=== PATIENT | male | born 1940 | race Hispanic/Latino ===

== ENCOUNTER 2017-10-17 15:53 | Observation (INO) | payer MEDICARE, OTHER ==
[2017-10-17 17:48] LABS: BASO # 0.1 K/uL (0.0-0.2); BASO % 0.7 % (0.0-2.0); EOS # 0.5 K/uL (0.0-0.7); EOS % 4.9 % (0.0-4.0); HEMOGLOBIN 16.5 g/dL (12.0-18.0); LYMPH # 2.7 K/uL (1.0-4.3); LYMPH % 28.3 % (20.0-40.0); MEAN CELL VOLUME 92.9 fL (80.0-94.0); MEAN CORPUSCULAR HEMOGLOBIN 31.4 pg (27.0-31.0); MEAN CORPUSCULAR HGB CONC 33.8 g/dL (33.0-37.0); MEAN PLATELET VOLUME 8.1 fL (7.2-11.7); MONO # 0.8 K/uL (0.0-0.8); MONO % 8.4 % (0.0-10.0); NEUT # 5.4 K/uL (1.8-7.0); NEUT % 57.7 % (50.0-75.0); NRBC % 0.1 % (0.0-2.0); RBC 5.24 Mil/uL (4.40-5.90); RED CELL DISTRIBUTION WIDTH 13.3 % (11.5-14.5); WHITE BLOOD COUNT 9.4 K/uL (4.8-10.8)
[2017-10-17 17:53] LABS: URINE BILIRUBIN NEGATIVE (NEGATIVE); URINE BLOOD NEGATIVE (NEGATIVE); URINE CLARITY Clear (Clear); URINE COLOR Straw (YELLOW); URINE GLUCOSE (UA) NORMAL (Normal); URINE LEUKOCYTE ESTERASE NEG Leu/uL (Negative); URINE PROTEIN NEGATIVE (NEGATIVE); URINE UROBILINOGEN NORMAL mg/dL (0.2-1.0)
[2017-10-17 18:12] LABS: ALB/GLOB RATIO 1.2 (1.0-2.1); ALBUMIN 4.6 g/dL (3.5-5.0); ALT/SGPT 34 U/L (21-72); AST/SGOT 30 U/L (17-59); BLOOD UREA NITROGEN 12 mg/dL (9-20); CALCIUM 9.7 mg/dl (8.6-10.4); GFR AFRICAN-AMERICAN > 60; GFR NON-AFRICAN AMERICAN > 60
[2017-10-17 18:46] LABS: T3 1.84 nmol/L (1.49-2.60)
--- NOTE | 2017-10-17 19:43 | C.PDOC ---
History Of Present Illness 77 y/o male presents to ED with c/o palpitations and intermittent chest pain for "couple of days". Patient has history of a-fib and was scheduled for cardiac work up in 3 days. Patient denies fever, cough, nausea, vomiting or any other complaints at this time. Time Seen by Provider: 10/17/17 16:17 Chief Complaint (Nursing): Palpitations History Per: Patient History/Exam Limitations: no limitations Onset/Duration Of Symptoms: Days Current Symptoms Are (Timing): Still Present Quality: "Pain" Past Medical History Reviewed: Historical Data, Nursing Documentation, Vital Signs Vital Signs: Last Vital Signs Temp 97.9 F 10/17/17 21:25 Pulse 85 10/17/17 21:25 Resp 20 10/17/17 21:25 BP 124/80 10/18/17 00:19 Pulse Ox 96 10/17/17 21:25 - Medical History PMH: Anxiety, HTN, Hypercholesterolemia, Post Traumatic Stress Disorder Surgical History: Appendectomy, Cholecystectomy, Coronary Stent Family History: States: No Known Family Hx - Social History Hx Tobacco Use: No Hx Alcohol Use: No Hx Substance Use: No - Immunization History Hx Tetanus Toxoid Vaccination: Yes Hx Influenza Vaccination: Yes Hx Pneumococcal Vaccination: Yes Review Of Systems Constitutional: Negative for: Fever, Chills Cardiovascular: Positive for: Chest Pain, Palpitations Respiratory: Negative for: Shortness of Breath Gastrointestinal: Negative for: Nausea, Vomiting Skin: Negative for: Rash Physical Exam - Physical Exam Appears: Non-toxic, No Acute Distress Skin: Warm, Dry, No Rash Head: Atraumatic, Normacephalic Eye(s): bilateral: Normal Inspection Oral Mucosa: Moist Neck: Normal ROM, Supple Cardiovascular: Rhythm Regular, Other (Tachycardic) Respiratory: Normal Breath Sounds, No Rales, No Rhonchi, No Wheezing Gastrointestinal/Abdominal: Soft, No Tenderness, No Guarding, No Rebound Extremity: No Pedal Edema, Capillary Refill (<2 seconds) Neurological/Psych: Oriented x3, Normal Speech, Normal Cognition ED Course And Treatment - Laboratory Results Result Diagrams: 10/17/17 17:39 10/17/17 17:39 ECG: Interpreted By Me, Viewed By Me ECG Rhythm: Atrial Fibrillation Rate From EC (BPM) O2 Sat by Pulse Oximetry: 96 (RA) Medical Decision Making Medical Decision Making: Progress: Cardizem IV push administered, resolution of tachycardia Patient at times became tachycardic on 140s Dr. Hough called, patient be admitted to her service and telemetry Disposition - Disposition Disposition: HOSPITALIZED Disposition Time: 18:45 Condition: FAIR - Clinical Impression Clinical Impression: (Ruled Out): Atrial fibrillation with RVR - Scribe Statement The provider has reviewed the documentation as recorded by the Mikeibsandor Del Angel All medical record entries made by the Mikeibsandor were at my direction and personally dictated by me. I have reviewed the chart and agree that the record accurately reflects my personal performance of the history, physical exam, medical decision making, and the department course for this patient. I have also personally directed, reviewed, and agree with the discharge instructions and disposition.
[2017-10-18] MEDS: Enoxaparin 40 mg Syringe SC SCH (09:35)
--- NOTE | 2017-10-18 10:41 | RAD ---
PROCEDURE: CHEST RADIOGRAPH, 1 VIEW HISTORY: chest pain COMPARISON: Comparison made with chest radiograph 04/16/2016. FINDINGS: LUNGS: Suspect minor left basilar atelectasis and or scarring. Appears otherwise clear. PLEURA: No pneumothorax or pleural fluid seen. CARDIOVASCULAR: Normal. OSSEOUS STRUCTURES: No significant abnormalities. VISUALIZED UPPER ABDOMEN: Normal. OTHER FINDINGS: None. IMPRESSION: Suspect minor left basilar atelectasis and or scarring. Appears otherwise clear.
--- NOTE | 2017-10-18 11:05 | CP.PCM.CON ---
History of Present Illness - History of Present Illness History of Present Illness: Patient with history of Paroxysmal atrial fibrillation who came in for palpitation. As per patient he has these epidoes before and was treated at [place]. Now does nor feel any palpitation. No chest pain or SOB. walking in the hallway. Past Patient History - Past Medical History & Family History Past Medical History?: Yes - Past Social History Smoking Status: Never Smoked - CARDIAC Hx Hypercholesterolemia: Yes Hx Hypertension: Yes - PULMONARY Hx Respiratory Disorders: No - NEUROLOGICAL Hx Neurological Disorder: No - HEENT Hx HEENT Problems: No - RENAL Hx Chronic Kidney Disease: No - ENDOCRINE/METABOLIC Hx Endocrine Disorders: No - HEMATOLOGICAL/ONCOLOGICAL Hx Blood Disorders: No - INTEGUMENTARY Hx Dermatological Problems: No - MUSCULOSKELETAL/RHEUMATOLOGICAL Hx Musculoskeletal Disorders: No Hx Falls: No - GASTROINTESTINAL Hx Gastrointestinal Disorders: No - GENITOURINARY/GYNECOLOGICAL Hx Genitourinary Disorders: No - PSYCHIATRIC Hx Anxiety: Yes Hx Post Traumatic Stress Disorder: Yes Hx Substance Use: No - SURGICAL HISTORY Hx Appendectomy: Yes Hx Cholecystectomy: Yes Hx Coronary Stent: Yes - ANESTHESIA Hx Anesthesia: Yes Hx Anesthesia Reactions: No Hx Malignant Hyperthermia: No Meds Allergies/Adverse Reactions: Allergies Allergy/AdvReac Type Severity Reaction Status Date / Time No Known Allergies Allergy Unverified 03/11/14 05:07 - Medications Medications: Current Medications Amlodipine Besylate (Norvasc) 10 mg PO DAILY [facility] Last Admin: 10/18/17 09:33 Dose: 10 mg Aspirin (Aspirin) 325 mg PO DAILY [facility] Last Admin: 10/18/17 09:33 Dose: 325 mg Enoxaparin Sodium (Lovenox) 40 mg SC DAILY [facility] Last Admin: 10/18/17 09:35 Dose: 40 mg Isosorbide Mononitrate (Imdur) 60 mg PO DAILY [facility] Last Admin: 10/18/17 09:34 Dose: 60 mg Metoprolol Tartrate (Lopressor) 25 mg PO BID [facility] Last Admin: 10/18/17 09:34 Dose: 25 mg Rosuvastatin Calcium (Crestor) 20 mg PO [facility] Physical Exam - Head Exam Head Exam: NORMOCEPHALIC - Neck Exam Neck exam: Positive for: Normal Inspection - Respiratory Exam Respiratory Exam: NORMAL BREATHING PATTERN - Cardiovascular Exam Cardiovascular Exam: REGULAR RHYTHM - Extremities Exam Extremities exam: Positive for: normal inspection - Neurological Exam Neurological exam: Alert, Oriented x3 Results - Vital Signs Recent Vital Signs: Last Vital Signs Temp 97.7 F 10/18/17 07:00 Pulse 66 10/18/17 07:04 Resp 20 10/18/17 07:00 BP 165/89 H 10/18/17 09:42 Pulse Ox 95 10/18/17 07:57 - Labs Result Diagrams: 10/17/17 17:39 10/17/17 17:39 Labs: Laboratory Results - last 24 hr 10/17/17 10/17/17 10/17/17 17:39 17:39 17:39 WBC 9.4 RBC 5.24 Hgb 16.5 Hct 48.7 MCV 92.9 MCH 31.4 H MCHC 33.8 RDW 13.3 Plt Count 281 MPV 8.1 Neut % (Auto) 57.7 Lymph % (Auto) 28.3 [place] % (Auto) 8.4 Eos % (Auto) 4.9 H Baso % (Auto) 0.7 Neut # (Auto) 5.4 Lymph # (Auto) 2.7 [place] # (Auto) 0.8 Eos # (Auto) 0.5 Baso # (Auto) 0.1 Sodium 145 Potassium 4.2 Chloride 105 Carbon Dioxide 25 Anion Gap 19 BUN 12 Creatinine 1.0 Est GFR ( Amer) > 60 Est GFR (Non-Af Amer) > 60 Random Glucose 93 Calcium 9.7 Total Bilirubin 0.9 AST 30 ALT 34 Alkaline Phosphatase 70 Troponin I < 0.0120 Total Protein 8.5 H Albumin 4.6 Globulin 3.9 Albumin/Globulin Ratio 1.2 Free T4 Total T3 1.84 TSH 3rd Generation 1.96 Urine Color Straw Urine Clarity Clear Urine pH 7.0 Ur Specific [place] 1.005 Urine Protein Negative Urine Glucose (UA) Normal Urine Ketones Negative Urine Blood Negative Urine Nitrate Negative Urine Bilirubin Negative Urine Urobilinogen Normal Ur Leukocyte Esterase Neg Urine WBC (Auto) < 1 Urine RBC (Auto) < 1 10/17/17 10/18/17 17:39 01:47 WBC RBC Hgb Hct MCV MCH MCHC RDW Plt Count MPV Neut % (Auto) Lymph % (Auto) [place] % (Auto) Eos % (Auto) Baso % (Auto) Neut # (Auto) Lymph # (Auto) [place] # (Auto) Eos # (Auto) Baso # (Auto) Sodium Potassium Chloride Carbon Dioxide Anion Gap BUN Creatinine Est GFR ( Amer) Est GFR (Non-Af Amer) Random Glucose Calcium Total Bilirubin AST ALT Alkaline Phosphatase Troponin I 0.0150 Total Protein Albumin Globulin Albumin/Globulin Ratio Free T4 0.86 Total T3 TSH 3rd Generation Urine Color Urine Clarity Urine pH Ur Specific [place] Urine Protein Urine Glucose (UA) Urine Ketones Urine Blood Urine Nitrate Urine Bilirubin Urine Urobilinogen Ur Leukocyte Esterase Urine WBC (Auto) Urine RBC (Auto) Assessment & Plan (1) Chest pain Assessment and Plan: Resolved, Echocardiogram to assess LV systolic function. Troponin negative so far. Patient has appointment on for some, nay have further cardiac work -up there. Status: Acute (2) Palpitations Assessment and Plan: Paroxysmal Atrial fibrillation now in Sinus. However given multiple episodes will therapeutic Anticoagulation. D/C cardizem and increase cardizem as tolerated. Discussed with team. Status: Acute
[2017-10-19 07:45] LABS: IRON 80 ug/dL (49-181)
[2017-10-19 07:56] LABS: % IRON SATURATION 26 (20-55); TOTAL IRON BINDING CAPACITY 312 ug/dL (250-450)
[2017-10-19 08:52] LABS: FOLATE 14.2 ng/mL
[2017-10-19 08:55] VITALS: RESP 18; TEMP 97.8
[2017-10-19 09:25] VITALS: BP 133/76
[2017-10-19] MEDS: Enoxaparin 40 mg Syringe SC SCH (09:25)
[2017-10-19 12:29] VITALS: PULSE 65
--- NOTE | 2017-10-19 12:40 | CP.PCM.PN ---
Subjective - Date & Time of Evaluation Date of Evaluation: 10/19/17 Time of Evaluation: 12:39 Objective - Vital Signs/Intake and Output Vital Signs (last 24 hours): Temp Pulse Resp BP Pulse Ox 97.8 F 65 18 133/76 96 10/19/17 08:54 10/19/17 11:40 10/19/17 08:54 10/19/17 09:24 10/19/17 12:28 - Medications Medications: Current Medications Amlodipine Besylate (Norvasc) 10 mg PO DAILY [facility] Last Admin: 10/19/17 09:24 Dose: 10 mg Aspirin (Aspirin) 325 mg PO DAILY [facility] Last Admin: 10/19/17 09:24 Dose: 325 mg Enoxaparin Sodium (Lovenox) 40 mg SC DAILY [facility] Last Admin: 10/19/17 09:25 Dose: 40 mg Isosorbide Mononitrate (Imdur) 60 mg PO DAILY [facility] Last Admin: 10/19/17 09:24 Dose: 60 mg Metoprolol Tartrate (Lopressor) 25 mg PO BID [facility] Last Admin: 10/19/17 09:24 Dose: 25 mg Rosuvastatin Calcium (Crestor) 20 mg PO HS [facility] Last Admin: 10/18/17 21:26 Dose: 20 mg - Labs Labs: 10/17/17 17:39 10/17/17 17:39 Assessment and Plan (1) Chest pain Status: Acute (2) Palpitations Status: Acute
--- NOTE | 2017-10-19 13:13 | HP ---
The patient was seen and examined at the bedside on 10/18/2017. CHIEF COMPLAINT: Palpitation, chest pain. HISTORY OF PRESENT ILLNESS: Mr. Alexa Barba is a 77-year-old male who came in complaining of palpitations and intermittent chest pain for a couple of days. The patient has a history of atrial fibrillation and was scheduled for cardiac workup in 3 days. The patient denies fever, cough, nausea, vomiting, or diarrhea. No headache, no dizziness. No hematuria or hematochezia. Just having palpitation, was still present when I did the examination. PAST MEDICAL HISTORY: Anxiety, hypertension, hypercholesterolemia, posttraumatic stress disorder, history of appendectomy, cholecystectomy, coronary stenting. FAMILY HISTORY: Father and mother, noncontributory. HABITS: No smoking. No drugs. No ethanol. REVIEW OF SYSTEMS: The patient was seen and examined at the bedside. Looking comfortable except for palpitation , chest pain. No fever. No chills. No shortness of breath. No nausea, vomiting, diarrhea. No rash. PHYSICAL EXAMINATION: VITAL SIGNS: Temperature 97.9, pulse 85, respiratory rate 20, blood pressure 124/80, pulse oximetry 96. HEENT: Head normocephalic and atraumatic. Eyes PERRLA. Extraocular muscles intact. Conjunctivae clear. Nose patent. Mucous membrane moist. NECK: Supple. No carotid bruits. No JVD, thyromegaly. CHEST: Bilaterally symmetrical. HEART: S1, S2 positive. LUNGS: Clear to auscultation. ABDOMEN: Soft. Bowel sounds present. No organomegaly. EXTREMITIES: No edema. No cyanosis. NEUROLOGIC: The patient is awake and alert. Moving all 4 extremities. No focal deficit. LABORATORY DATA: White blood cell 9.4, hemoglobin 15.5, hematocrit 48.7, platelets 281. Sodium 145, potassium 4.2, BUN 12, creatinine 1, glucose 93. ASSESSMENT AND PLAN: Mr. Alexa Barba is a 77-year-old male, came with atrial fibrillation, chest pain, palpitation, started on Cardizem with partial resolution of tachycardia. The patient has tachycardia in the 140s. The patient admitted to the telemetry, Cardiology consults called with Dr. Fatima. The patient had atrial fibrillation with rapid ventricular response. The patient has a history of anxiety, hypertension, hypercholesterolemia, posttraumatic stress disorder, appendectomy, cholecystectomy, coronary artery disease. According to the patient, he had these type of episodes before and was treated in [place], now does not feel any palpitation. As per Dr. Fatima's notes, he wanted to do echocardiography to evaluate systolic function. Troponin negative so far. The patient has an appointment on for some further cardiac workup. Given multiple episodes of therapeutic anticoagulation, discontinue Cardizem and increase the Cardizem as tolerated. I appreciate Dr. Fatima's input. We will repeat labs. We will follow up. Sheila Hough MD MTDD
--- NOTE | 2017-10-19 14:13 | CARD ---
APPROVED REPORT EXAM: Two-dimensional and M-mode echocardiogram with Doppler and color Doppler. Other Information Quality : GoodRhythm : INDICATION Atrial Fibrillation Chest Pain RISK FACTORS Hypertension 2D DIMENSIONS IVSd0.7 (0.7-1.1cm)LVDd5.4 (3.9-5.9cm) PWd1.1 (0.7-1.1cm)LVDs2.6 (2.5-4.0cm) FS (%) 51.6 %LVEF (%)72.0 (>50%) M-Mode DIMENSIONS RVDd2.14 (2.1-3.2cm)Left Atrium (MM)3.41 (2.5-4.0cm) IVSd1.00 (0.7-1.1cm)Aortic Root4.10 (2.2-3.7cm) LVDd5.83 (4.0-5.6cm)Aortic Cusp Exc.2.45 (1.5-2.0cm) PWd0.85 (0.7-1.1cm)FS (%) 45 % LVDs3.21 (2.0-3.8cm)LVEF (%)70 (>50%) Aortic Valve AI P 1/2 [id number] Mitral Valve MV E Auckcvvc68.7cm/sMV A Ffvarjmx24.3cm/sE/A ratio0.8 TDI E/Lateral E'0.0E/Medial E'0.0 Tricuspid Valve TR Peak [id number]/sTR Peak Gr.[id number] LEFT VENTRICLE The Left Ventricle is mildly dilated. There is normal left ventricular wall thickness. The left ventricular function is normal. The left ventricular ejection fraction is within the normal range. About 55% No regional wall motion abnormalities noted. The left ventricular diastolic function is indterminate No left ventricle thrombus noted on this study. There is no ventricular septal defect visualized. There is no left ventricular aneurysm. There is no mass noted in the left ventricle. RIGHT VENTRICLE The right ventricle is normal size. There is normal right ventricular wall thickness. The right ventricular systolic function is normal. ATRIA The left atrium size is normal. The right atrium size is normal. The interatrial septum is intact with no evidence for an atrial septal defect. AORTIC VALVE The aortic valve is normal in structure and function. [place]ate aortic regurgitation is present. There is no aortic valvular stenosis. There is no aortic valvular vegetation. MITRAL VALVE The mitral valve is normal in structure and function. There is no evidence of mitral valve prolapse. There is no mitral valve stenosis. There is no mitral valve regurgitation noted. TRICUSPID VALVE The tricuspid valve is normal in structure and function. There is no tricuspid valve regurgitation noted. There is no tricuspid valve prolapse or vegetation. There is no tricuspid valve stenosis. PULMONIC VALVE The pulmonary valve is normal in structure and function. There is no pulmonic valvular regurgitation. There is no pulmonic valvular stenosis. GREAT VESSELS The aortic root is normal The ascending aorta is moderately dilated at the level of the sinuses, 4.1 cm. The ascending aorta is mildly dilated at 3.8 cm diameter. The pulmonary artery is normal. The IVC is normal in size and collapses >50% with inspiration. PERICARDIAL EFFUSION The pericardium appears normal. There is no pleural effusion. <Conclusion> The Left Ventricle is mildly dilated. The left ventricular function is normal. The left ventricular ejection fraction is within the low normal range. About 55% Moderate aortic regurgitation is present. The ascending aorta is moderately dilated at the level of the sinuses, 4.1 cm. The ascending aorta is mildly dilated at 3.8 cm diameter.
--- NOTE | 2017-10-19 16:07 | CP.PCM.PN ---
Subjective - Date & Time of Evaluation Date of Evaluation: 10/19/17 Time of Evaluation: 13:00 - Subjective Subjective: [employer] NOTES Patient seen today denies any chest pain, sob, palpitations, dizziness No overnight events recorded on monitor oob ambulating the hallway without sob Objective - Vital Signs/Intake and Output Vital Signs (last 24 hours): Temp Pulse Resp BP Pulse Ox 97.8 F 65 18 133/76 96 10/19/17 08:54 10/19/17 11:40 10/19/17 08:54 10/19/17 09:24 10/19/17 12:28 - Medications Medications: Current Medications Amlodipine Besylate (Norvasc) 10 mg PO DAILY [facility] Last Admin: 10/19/17 09:24 Dose: 10 mg Aspirin (Aspirin) 325 mg PO DAILY [facility] Last Admin: 10/19/17 09:24 Dose: 325 mg Enoxaparin Sodium (Lovenox) 40 mg SC DAILY [facility] Last Admin: 10/19/17 09:25 Dose: 40 mg Isosorbide Mononitrate (Imdur) 60 mg PO DAILY [facility] Last Admin: 10/19/17 09:24 Dose: 60 mg Metoprolol Tartrate (Lopressor) 25 mg PO BID [facility] Last Admin: 10/19/17 09:24 Dose: 25 mg Rosuvastatin Calcium (Crestor) 20 mg PO HS [facility] Last Admin: 10/18/17 21:26 Dose: 20 mg - Labs Labs: 10/17/17 17:39 10/17/17 17:39 Assessment and Plan - Assessment and Plan (Free Text) Assessment: 77 yr old male with hx of paroxymal afib admitted with palpitations HR controlled Seen by Dr. Fatima today cleared for discharge home today from cardiology stand point and continue eliquis bid and f/u with his MD at [facility] ( pt has appointment tmw at [facility] Echo done today- normal VF and EF 55% D/w Dr. Elliott , stable for discharge home today Discharge plan discussed with patient who understands and agrees with plan RX given for eliquis
[2017-10-19 16:19] VITALS: O2SAT 97
--- NOTE | 2017-10-20 12:18 | CARD ---
APPROVED REPORT EKG Measurement Heart [id number] <Conclusion> Atrial fibrillation with rapid ventricular response Abnormal ECG
== END 2017-10-19 16:45 | disposition home or self-care (01) ==
LOC: C.ER 15:53 → C.9E 19:26 → C.6T 20:49
PROVIDERS: ADMIT Internal Medicine; ATTEND Internal Medicine
DX: I48.0 Paroxysmal atrial fibrillation (principal); I10 Essential (primary) hypertension; I25.10 Atherosclerotic heart disease of native coronary artery without angina pectoris; E78.00 Pure hypercholesterolemia, unspecified; F43.10 Post-traumatic stress disorder, unspecified; Z95.5 Presence of coronary angioplasty implant and graft; Z79.01 Long term (current) use of anticoagulants; Z90.49 Acquired absence of other specified parts of digestive tract
CPT/HCPCS: 36415; 71045; 80053; 80061; 81001; 82607; 82746; 83036; 83540; 83550; 84439; 84443; 84480; 84484; 85025; 93306; 96374; 97110; 97162; 99285; G0378; G8978; G8979; G8980; J1650